=== PATIENT | female | born 1980 | race Caucasian/White ===

== ENCOUNTER 2016-07-11 11:26 | Emergency (ER) | payer MEDICAID ==
[~2016-07-11] VITALS: Ht 160 cm; Wt 124.5 kg
[~2016-07-11 11:26] MED LIST: AMOX-291 PO; CEPH-375 PO; HYDR12.53 PO; HYDR473S19; NO MEDICATIONS; OXYC-302 PO; none per pt
[2016-07-11] MEDS ORDERED: SODIUM CHLORIDE 0.9% 1,000 ML IV ONE (11:45)
[2016-07-11] MEDS ORDERED: SODIUM CHLORIDE 0.9% 1,000ML IVBOLUS ONE (12:00)
[2016-07-11] MEDS ORDERED: SODIUM CHLORIDE FLUSH 10ML SYR IVF ONE (12:00)
[2016-07-11 12:59] LABS: ASPARTATE AMINO TRANSFERASE 28 U/L (15-37); BLOOD UREA NITROGEN 11 mg/dL (7-18)
[2016-07-11] MEDS ORDERED: POTASSIUM CHLORIDE 20 MEQ in SODIUM CHLORIDE 0.9% 1,000 ML IV ONE (13:10)
[2016-07-11] MEDS ORDERED: SODIUM CHLORIDE FLUSH 10ML SYR IVF PRN (13:30)
[2016-07-11 14:16] VITALS: BP 124/75
== END 2016-07-11 14:18 | disposition home or self-care (01) ==
LOC: ED 13:09
DX: K76.0 Fatty (change of) liver, not elsewhere classified (principal)
CPT/HCPCS: 36415; 74176; 80053; 81003; 84703; 85025; 96360; 96361; 99285; J7030

== ENCOUNTER 2016-09-11 12:50 | Emergency (ER) | payer MEDICAID ==
[~2016-09-11] VITALS: Ht 160 cm; Wt 122.5 kg
[2016-09-11] MEDS ORDERED: MORPHINE SULFATE 4 MG/ML, 1ML IVPush PRN (14:30)
[2016-09-11] MEDS ORDERED: SODIUM CHLORIDE FLUSH 10ML SYR IVF ONE (14:30)
[2016-09-11] MEDS ORDERED: SODIUM CHLORIDE 0.9% 1,000ML IV ONE (14:30)
[2016-09-11] MEDS ORDERED: ONDANSETRON 2MG/ML, 2ML IVPush ONE (14:30)
[2016-09-11] MEDS ORDERED: ONDANSETRON 2MG/ML, 2ML ONE (14:49)
[2016-09-11] MEDS ORDERED: MORPHINE SULFATE 4 MG/ML, 1ML ONE (14:49)
[2016-09-11 15:02] LABS: ASPARTATE AMINO TRANSFERASE 39 U/L (15-37); BLOOD UREA NITROGEN 5 mg/dL (7-18)
[2016-09-11 15:56] VITALS: BP 123/75
== END 2016-09-11 15:58 | disposition home or self-care (01) ==
LOC: ED 13:50
DX: R10.9 Unspecified abdominal pain (principal); K21.9 Gastro-esophageal reflux disease without esophagitis; M54.12 Radiculopathy, cervical region; Z87.442 Personal history of urinary calculi
CPT/HCPCS: 36415; 76770; 80053; 81001; 83605; 84702; 85025; 87040; 96361; 96374; 96375; 99285; J2405; J7030

== ENCOUNTER 2016-11-24 08:48 | Emergency (ER) | payer MEDICAID ==
[~2016-11-24] VITALS: Ht 160 cm; Wt 120.9 kg
[2016-11-24 08:51] VITALS: BP 132/91
== END 2016-11-24 10:55 | disposition home or self-care (01) ==
LOC: ED 10:50
DX: B34.9 Viral infection, unspecified (principal); K21.9 Gastro-esophageal reflux disease without esophagitis
CPT/HCPCS: 71020; 99284

== ENCOUNTER 2017-03-21 08:57 | Emergency (ER) | payer MEDICAID ==
[~2017-03-21] VITALS: Ht 160 cm; Wt 122.2 kg
[2017-03-21] MEDS ORDERED: DULO30CA2 PO (09:35)
[2017-03-21] MEDS ORDERED: CELE100C PO (09:35)
[2017-03-21 09:39] LABS: BASOPHILS # (AUTO) 0.04 x10^3/uL (0-0.1); BASOPHILS % (AUTO) 1 % (0-1); EOSINOPHILS # (AUTO) 0.17 x10^3/uL (0-0.4); EOSINOPHILS % (AUTO) 3 % (1-7); LYMPHOCYTES # (AUTO) 2.13 x10^3/uL (1-3.4); LYMPHOCYTES % (AUTO) 37 % (22-44); MD NO; MEAN CORPUSCULAR HEMOGLOBIN 28.7 pg (27.0-34.8); MEAN CORPUSCULAR VOLUME 84.4 fL (80-100); MEAN PLATELET VOLUME 9.2 fL (7.4-10.4); MONOCYTES # (AUTO) 0.34 x10^3/uL (0.2-0.8); MONOCYTES % (AUTO) 6 % (2-9); NEUTROPHILS % (AUTO) 54 % (42-75); PLATELET COUNT 202 x10^3/uL (130-400); RED BLOOD COUNT 5.43 x10^6/uL (3.82-5.3); RED CELL DISTRIBUTION WIDTH 12.7 % (9.6-15.2)
[2017-03-21 09:51] LABS: ALBUMIN 3.4 g/dL (3.4-5.0); ANION GAP 6 mmol/L (5-15); CHLORIDE 110 mmol/L (98-107); CREATININE 0.77 mg/dL (0.55-1.02)
[2017-03-21 09:55] LABS: ALKALINE PHOSPHATASE 88 U/L (45-117); BILIRUBIN,TOTAL 0.5 mg/dL (0.2-1.0); TOTAL PROTEIN 7.4 g/dL (6.4-8.2)
[2017-03-21 09:56] LABS: ALANINE AMINOTRANSFERASE 46 U/L (12-78)
[2017-03-21 09:57] LABS: CULTURE INDICATED? YES; MICROSCOPIC INDICATED
[2017-03-21 11:38] VITALS: BP 126/83
[2017-03-21 13:08] LABS: MICROSCOPIC NOT IND
[2017-03-21 13:12] LABS: CULTURE INDICATED? NO
== END 2017-03-21 13:36 | disposition home or self-care (01) ==
LOC: ED 09:51
DX: R10.9 Unspecified abdominal pain (principal); K21.9 Gastro-esophageal reflux disease without esophagitis
CPT/HCPCS: 36415; 74176; 80053; 81001; 81003; 83690; 84703; 85025; 87086; 99285

== ENCOUNTER 2018-01-01 13:52 | Emergency (ER) | payer MEDICAID ==
[~2018-01-01] VITALS: Ht 160 cm; Wt 120.7 kg
[~2018-01-01 13:52] MED LIST changes: +CELE100C PO; +DULO30CA2 PO; +GABA600T2 PO; +METF500T17 PO
[2018-01-01 14:50] LABS: BASOPHILS # (AUTO) 0.07 x10^3/uL (0-0.1); BASOPHILS % (AUTO) 1 % (0-1); EOSINOPHILS # (AUTO) 0.05 x10^3/uL (0-0.4); EOSINOPHILS % (AUTO) 1 % (1-7); LYMPHOCYTES % (AUTO) 33 % (22-44); MD NO; MEAN CORPUSCULAR HGB CONC 33.9 g/dL (32.4-35.8); MEAN CORPUSCULAR VOLUME 85.5 fL (80-100); MEAN PLATELET VOLUME 10.1 fL (7.4-10.4); MONOCYTES # (AUTO) 0.52 x10^3/uL (0.2-0.8); MONOCYTES % (AUTO) 8 % (2-9); NEUTROPHILS # (AUTO) 3.76 x10^3/uL (1.8-6.8); NEUTROPHILS % (AUTO) 57 % (42-75); PLATELET COUNT 226 x10^3/uL (130-400); RED BLOOD COUNT 5.22 x10^6/uL (3.82-5.3); RED CELL DISTRIBUTION WIDTH 12.8 % (9.6-15.2)
[2018-01-01 15:01] LABS: ALBUMIN 3.3 g/dL (3.4-5.0); ANION GAP 8 mmol/L (5-15); CHLORIDE 107 mmol/L (98-107)
[2018-01-01 15:06] LABS: ALANINE AMINOTRANSFERASE 51 U/L (12-78); ALKALINE PHOSPHATASE 85 U/L (45-117); BILIRUBIN,TOTAL 0.3 mg/dL (0.2-1.0); CREATININE 0.81 mg/dL (0.55-1.02); TOTAL PROTEIN 7.1 g/dL (6.4-8.2)
[2018-01-01 15:08] LABS: MICROSCOPIC INDICATED
[2018-01-01 15:28] LABS: CULTURE INDICATED? NO
[2018-01-01 16:54] VITALS: BP 125/92
[2018-01-01] MEDS ORDERED: MAALOX/HYOSCYAMINE/LIDOCAINE 45 ML BTL PO ONE (18:00)
== END 2018-01-01 17:52 | disposition home or self-care (01) ==
LOC: ED 16:35
DX: K29.00 Acute gastritis without bleeding (principal); M54.5 Low back pain
CPT/HCPCS: 36415; 74176; 80053; 81001; 83690; 84703; 85025; 99285

== ENCOUNTER 2019-08-28 11:38 | Emergency (ER) | payer MEDICAID ==
[~2019-08-28] VITALS: Ht 160 cm; Wt 128.5 kg
[~2019-08-28 11:38] MED LIST changes: -GABA600T2 PO; +GABA600T7 PO; +HYDR12.517 PO; -HYDR12.53 PO
--- NOTE | 2019-08-28 12:08 | NUR ---
FIRST CONTACT WITH PT. PT HAS PAIN RIGHT FLANK, PAINFUL URINATION FOR 1 WEEK. PT'S AOX4. RESPS EVEN AND UNLABORED. BP/SPO2 MONITORS IN PLACE. CALL LIGHT WITHIN REACH. PT URINATED IN URINE CUP ALREADY.
--- NOTE | 2019-08-28 12:14 | NUR ---
UA SENT AT THIS TIME.
[2019-08-28] MEDS ORDERED: KETOROLAC 30 MG/1 ML ONE (12:17)
--- NOTE | 2019-08-28 12:21 | NUR ---
PT MEDICATED PER EMAR. PT TOLERATED WELL.
[2019-08-28] MEDS ORDERED: KETOROLAC 30 MG/1 ML IM ONE (12:30)
[2019-08-28 12:57] LABS: BASOPHILS # (AUTO) 0.03 x10^3/uL (0-0.1); BASOPHILS % (AUTO) 1 % (0-1); EOSINOPHILS # (AUTO) 0.07 x10^3/uL (0-0.4); EOSINOPHILS % (AUTO) 2 % (1-7); LYMPHOCYTES # (AUTO) 1.78 x10^3/uL (1-3.4); LYMPHOCYTES % (AUTO) 39 % (22-44); MD NO; MEAN CORPUSCULAR HEMOGLOBIN 28.5 pg (27.0-34.8); MEAN CORPUSCULAR HGB CONC 33.1 g/dL (32.4-35.8); MEAN CORPUSCULAR VOLUME 86.2 fL (80-100); MEAN PLATELET VOLUME 9.5 fL (7.4-10.4); MONOCYTES # (AUTO) 0.38 x10^3/uL (0.2-0.8); MONOCYTES % (AUTO) 8 % (2-9); NEUTROPHILS # (AUTO) 2.31 x10^3/uL (1.8-6.8); NEUTROPHILS % (AUTO) 51 % (42-75); PLATELET COUNT 204 x10^3/uL (130-400); RED CELL DISTRIBUTION WIDTH 13.3 % (9.6-15.2)
[2019-08-28 13:07] LABS: ALBUMIN 3.4 g/dL (3.4-5.0); CALCIUM 8.1 mg/dL (8.5-10.1); CREATININE 0.81 mg/dL (0.55-1.02)
--- NOTE | 2019-08-28 13:10 | NUR ---
pt resting in [facility]. pt's aox4. resps even and unlabored. sheila.
[2019-08-28 13:21] LABS: ANION GAP 4 mmol/L (5-15); CHLORIDE 112 mmol/L (98-107)
--- NOTE | 2019-08-28 13:55 | NUR ---
THIS RN CALLED LAB IF LAB HAS UA FOR THIS PT. LAB WILL TAKE A LOOK AND WILL CALL BACK.
[2019-08-28 14:20] LABS: HCG UR SG 1.026 (1.003-1.030)
[2019-08-28 14:24] LABS: MICROSCOPIC INDICATED
[2019-08-28 15:03] VITALS: BP 120/79
--- NOTE | 2019-08-28 15:03 | NUR ---
pt resting in [facility]. pt's aox4. resps even and unlabored. sheila.
--- NOTE | 2019-08-28 15:24 | NUR ---
Patient given discharge instructions and they have confirmed that they understand the instructions. Patient ambulatory with steady gait.
== END 2019-08-28 15:25 | disposition home or self-care (01) ==
LOC: ED 13:37
DX: N30.00 Acute cystitis without hematuria (principal); M54.5 Low back pain; R10.9 Unspecified abdominal pain; R20.0 Anesthesia of skin; R11.0 Nausea; E11.9 Type 2 diabetes mellitus without complications
CPT/HCPCS: 36415; 80048; 81001; 81025; 82040; 84703; 85025; 87086; 96372; 99285; J1885

== ENCOUNTER 2019-09-13 21:54 | Emergency (ER) | payer MEDICAID ==
[~2019-09-13] VITALS: Ht 160 cm; Wt 131.0 kg
[2019-09-13] MEDS ORDERED: LIDOCAINE-MPF 1%, 2ML ONE (23:21)
[2019-09-13] MEDS ORDERED: LIDOCAINE 1%, 10ML INFIL ONE (23:30)
[2019-09-14] MEDS ORDERED: NEOSPORIN OINT. PKT 1 PACKET ONE (00:03)
[2019-09-14 00:10] VITALS: BP 132/77
== END 2019-09-14 00:24 | disposition home or self-care (01) ==
LOC: ED 23:20
DX: S91.202A Unspecified open wound of left great toe with damage to nail, initial encounter (principal); S90.112A Contusion of left great toe without damage to nail, initial encounter; W22.8XXA Striking against or struck by other objects, initial encounter; Y93.89 Activity, other specified; Y92.009 Unspecified place in unspecified non-institutional (private) residence as the place of occurrence of the external cause; Y99.8 Other external cause status
CPT/HCPCS: 11730; 99284

== ENCOUNTER 2020-02-08 22:31 | Emergency (ER) | payer MEDICAID ==
[~2020-02-08] VITALS: Ht 160 cm; Wt 126.8 kg
--- NOTE | 2020-02-08 22:37 | NUR ---
SSAS DEVELOPER: PT PROVIDED WITH URINE CUP AND ISNTRUCTIONS FOR COLLECTION.
[2020-02-08 23:15] LABS: MICROSCOPIC AUTO
[2020-02-09 00:29] LABS: BASOPHILS % (AUTO) 1 % (0-1); EOSINOPHILS % (AUTO) 1 % (1-7); LYMPHOCYTES % (AUTO) 40 % (22-44); MEAN CORPUSCULAR HEMOGLOBIN 28.7 pg (27.0-34.8); MEAN CORPUSCULAR HGB CONC 34.2 g/dL (32.4-35.8); MEAN PLATELET VOLUME 9.7 fL (7.4-10.4); MONOCYTES % (AUTO) 10 % (2-9); NEUTROPHILS % (AUTO) 49 % (42-75); PLATELET COUNT 213 x10^3/uL (130-400); RED BLOOD COUNT 5.16 x10^6/uL (3.82-5.3); RED CELL DISTRIBUTION WIDTH 12.8 % (9.6-15.2)
[2020-02-09 00:33] LABS: MD NO
[2020-02-09 00:37] LABS: ALBUMIN 3.8 g/dL (3.4-5.0); ANION GAP 4 mmol/L (5-15); CALCIUM 8.8 mg/dL (8.5-10.1); CHLORIDE 104 mmol/L (98-107); CREATININE 0.74 mg/dL (0.55-1.02)
[2020-02-09] MEDS ORDERED: PHENAZOPYRIDINE 200 MG TABLET PO ONE (01:00)
[2020-02-09] MEDS ORDERED: KETOROLAC 30 MG/1 ML IM ONE (01:00)
--- NOTE | 2020-02-09 01:19 | NUR ---
RN RECRUITMENT: PT. TO ROOM FROM LOBBY.
[2020-02-09] MEDS ORDERED: NITROFURANTOIN (MACROBID) 100 MG CAPSULE PO ONE (01:30)
[2020-02-09 01:46] VITALS: BP 120/62
[2020-02-09] MEDS ORDERED: PHENAZOPYRIDINE 200 MG TABLET ONE (01:50)
[2020-02-09] MEDS ORDERED: KETOROLAC 30 MG/1 ML ONE (01:50)
[2020-02-09 03:25] LABS: HCG UR SG 1.009 (1.003-1.030)
== END 2020-02-09 02:32 | disposition home or self-care (01) ==
LOC: ED 02-09 02:00
DX: N30.00 Acute cystitis without hematuria (principal); R10.9 Unspecified abdominal pain; M54.5 Low back pain; E11.9 Type 2 diabetes mellitus without complications; K21.9 Gastro-esophageal reflux disease without esophagitis
CPT/HCPCS: 36415; 80048; 81001; 81025; 82040; 85025; 87086; 96372; 99283; J1885

== ENCOUNTER 2020-03-16 20:28 | Emergency (ER) | payer MEDICAID ==
[~2020-03-16] VITALS: Ht 160 cm; Wt 112.0 kg
--- NOTE | 2020-03-16 21:03 | NUR ---
CC OF 10/06 ABD PAIN X 4 DAYS AND NAUSEA. PT STATES SHE HAD GASTRIC SLEEVE ON Jan AND HAS HAD PAIN AND NAUSEA SINCE. WAS PRESCRIBED MEDICATION FOR PAIN AND NAUSEA AND STATES NEITHER HAS HELPED AND CANNOT REMEMBER NAMES. PT ALSO STATES SHE HAD FOLLOW UP APPOITMENT TODAY AND WAS TOLD THEY WERE "PLACING ORDERS" BUT STATES "THEY TAKE FOREVER TO PLACE ORDERS". PT ALSO ADMITS TO NOT HAVING BM IN "A WEEK OR LONGER, LAST ONE WAS HARD AND BLACK". PT HAS 5 STABS WOUNDS ON ABD FROM SURGERY THAT ARE HEALING WELL.
[2020-03-16] MEDS ORDERED: MAALOX/HYOSCYAMINE/LIDOCAINE 45 ML BTL ONE (21:26)
[2020-03-16] MEDS ORDERED: MAALOX/HYOSCYAMINE/LIDOCAINE 45 ML BTL PO ONE (21:30)
[2020-03-16] MEDS ORDERED: SODIUM CHLORIDE FLUSH 10ML SYR IVF ONE (21:30)
[2020-03-16 21:37] LABS: BASOPHILS % (AUTO) 1 % (0-1); EOSINOPHILS % (AUTO) 3 % (1-7); LYMPHOCYTES % (AUTO) 35 % (22-44); MD NO; MEAN CORPUSCULAR HEMOGLOBIN 28.2 pg (27.0-34.8); MEAN CORPUSCULAR HGB CONC 33.9 g/dL (32.4-35.8); MEAN PLATELET VOLUME 11.5 fL (7.4-10.4); MONOCYTES % (AUTO) 12 % (2-9); NEUTROPHILS % (AUTO) 49 % (42-75); PLATELET COUNT 151 x10^3/uL (130-400); RED BLOOD COUNT 5.23 x10^6/uL (3.82-5.3); RED CELL DISTRIBUTION WIDTH 13.8 % (9.6-15.2)
[2020-03-16 21:45] LABS: ALANINE AMINOTRANSFERASE 57 U/L (12-78); ALBUMIN 3.7 g/dL (3.4-5.0); ANION GAP 12 mmol/L (5-15); CALCIUM 8.8 mg/dL (8.5-10.1); CHLORIDE 104 mmol/L (98-107); CREATININE 0.94 mg/dL (0.55-1.02)
[2020-03-16 21:50] LABS: ALKALINE PHOSPHATASE 86 U/L (45-117); BILIRUBIN,TOTAL 0.7 mg/dL (0.2-1.0)
[2020-03-16] MEDS ORDERED: OMNIPAQUE 350 MG/ML, 100ML BOTTLE ONE (22:08)
[2020-03-16 23:16] VITALS: BP 123/81
== END 2020-03-16 23:18 | disposition home or self-care (01) ==
LOC: ED 21:02
DX: R10.32 Left lower quadrant pain (principal); R10.13 Epigastric pain; R94.31 Abnormal electrocardiogram [ECG] [EKG]
CPT/HCPCS: 36415; 74177; 80053; 83690; 84703; 85025; 93005; 99285; Q9967

== ENCOUNTER 2020-03-19 09:47 | Observation (INO) | payer MEDICAID ==
[~2020-03-19] VITALS: Ht 160 cm; Wt 114.9 kg
[~2020-03-19 09:47] MED LIST changes: -OXYC-302 PO; +OXYC1TAB14 PO
[2020-03-19 10:50] LABS: BASOPHILS % (AUTO) 1 % (0-1); EOSINOPHILS % (AUTO) 2 % (1-7); LYMPHOCYTES % (AUTO) 32 % (22-44); MEAN CORPUSCULAR HEMOGLOBIN 28.3 pg (27.0-34.8); MEAN CORPUSCULAR HGB CONC 34.3 g/dL (32.4-35.8); MEAN PLATELET VOLUME 11.7 fL (7.4-10.4); MONOCYTES % (AUTO) 13 % (2-9); NEUTROPHILS % (AUTO) 52 % (42-75); PLATELET COUNT 131 x10^3/uL (130-400); RED BLOOD COUNT 5.25 x10^6/uL (3.82-5.3); RED CELL DISTRIBUTION WIDTH 13.5 % (9.6-15.2)
[2020-03-19 10:51] LABS: MD NO
[2020-03-19 10:57] LABS: ALANINE AMINOTRANSFERASE 53 U/L (12-78); ALBUMIN 3.6 g/dL (3.4-5.0); ANION GAP 10 mmol/L (5-15); CALCIUM 8.5 mg/dL (8.5-10.1); CHLORIDE 101 mmol/L (98-107)
[2020-03-19 10:59] LABS: ALKALINE PHOSPHATASE 81 U/L (45-117); BILIRUBIN,TOTAL 0.8 mg/dL (0.2-1.0); TOTAL PROTEIN 6.8 g/dL (6.4-8.2)
[2020-03-19] MEDS ORDERED: POTASSIUM CHLORIDE 20 MEQ TAB.ER.PRT ONE (11:55)
[2020-03-19] MEDS ORDERED: NS + 40MEQ KCL 0 ML IV ONE (11:55)
[2020-03-19] MEDS ORDERED: POTASSIUM CHLORIDE 20 MEQ TAB.ER.PRT PO ONE (12:00)
[2020-03-19] MEDS ORDERED: POTASSIUM CHLORIDE 40 MEQ in SODIUM CHLORIDE 0.9% 1,000 ML IV ONE (12:00)
[2020-03-19] MEDS ORDERED: ONDANSETRON 2MG/ML, 2ML ONE (12:02)
[2020-03-19] MEDS ORDERED: ONDANSETRON 2MG/ML, 2ML IVPush ONE (12:30)
[2020-03-19] MEDS ORDERED: SODIUM CHLORIDE FLUSH 10ML SYR IVF PRN (12:30)
[2020-03-19] MEDS ORDERED: MULT-160 PO (12:38)
[2020-03-19] MEDS ORDERED: CALC400T40 PO (12:38)
[2020-03-19] MEDS ORDERED: VITA1TAB19 PO (12:38)
[2020-03-19] MEDS ORDERED: PANT20TA4 PO (12:38)
[2020-03-19] MEDS ORDERED: ONDANSETRON ODT 4 MG PO PRN (13:00)
[2020-03-19] MEDS ORDERED: LABETALOL 5MG/ML, 20ML IVPush PRN (13:00)
[2020-03-19] MEDS ORDERED: GLUCAGON 1 MG IM PRN (13:00)
[2020-03-19] MEDS ORDERED: IBUPROFEN 600 MG TABLET PO PRN (13:00)
[2020-03-19] MEDS ORDERED: DEXTROSE 50%, 50ML SYRINGE IVPush PRN (13:00)
[2020-03-19] MEDS ORDERED: ACETAMINOPHEN 325 MG TABLET PO PRN (13:00)
[2020-03-19] MEDS ORDERED: DEXTROSE 4 GM TAB.CHEW PO PRN (13:00)
[2020-03-19] MEDS ORDERED: POLYETHYLENE GLYCOL 17 GM PACKET PO PRN (13:00)
[2020-03-19] MEDS ORDERED: ONDANSETRON 2MG/ML, 2ML IVPush PRN (13:00)
[2020-03-19] MEDS ORDERED: ENALAPRILAT 1.25 MG/ML, 2ML IVPush PRN (13:00)
--- NOTE | 2020-03-19 13:22 | NUR ---
REPORT TO AUDELIA HAGEN
--- NOTE | 2020-03-19 13:30 | NUR ---
REPORT FROM LISE, ASSUME CARE OF PT AT THIS TIME.
--- NOTE | 2020-03-19 13:42 | NUR ---
PT RESTING COMFORTABLY, SPEAKING ON PHONE. PT OFFERED HOSPITAL BED, UNKNOWN DURATION OF HOLD IN ER. CALL TO HOUSEKEEPING TO REQUEST BED.
[2020-03-19] MEDS ORDERED: HEPARIN 5,000 UNITS/ML, 1ML ONE (14:17)
[2020-03-19] MEDS: HEPARIN 5,000 UNITS/ML, 1ML SQ SCH ×2 (14:20→20:14)
--- NOTE | 2020-03-19 14:47 | NUR ---
BREAK RN NOTE: PT RESTING ON GURNEY, A&O, RESPS EVEN AND UNLABORED. PT DENIES PAIN. NS WITH K INFUSING AT 250ML/HR. PT DENIES DISCOMFORT AT IV SITE. 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 CALL LIGHT IN REACH. PT DENIES ANY NEEDS.
--- NOTE | 2020-03-19 14:59 | NUR ---
PT MOVED TO HOSPITAL BED. NO COMPLAINTS, CALL LIGHT WITHIN REACH.
--- NOTE | 2020-03-19 15:49 | NUR ---
PT ASSISTED WITH REPOSITIONING, AMBULATORY TO BR. FREYA WE[facility] PLACED. CALL LIGHT WITHIN REACH.
[2020-03-19] MEDS: INSULIN REGULAR 100 UNITS/ML, 3ML VIAL SQ-INSULIN SCH ×2 (16:00→20:19)
--- NOTE | 2020-03-19 16:06 | NUR ---
REPORT TO BRANDON UGARTE READY FOR TRANSPORT.
[2020-03-19 16:40] VITALS: BP 117/77
[2020-03-19 17:16] LABS: ANION GAP 7 mmol/L (5-15); CALCIUM 7.9 mg/dL (8.5-10.1); CHLORIDE 106 mmol/L (98-107); CREATININE 0.63 mg/dL (0.55-1.02)
[2020-03-19] MEDS: POTASSIUM CHLORIDE 20 MEQ in LACTATED RINGERS 1,000 ML IV SCH (17:29)
[2020-03-19 19:21] VITALS: BP 102/70
[2020-03-19] MEDS ORDERED: POTASSIUM CHLORIDE 20 MEQ PACKET PO ONE (19:30)
[2020-03-19] MEDS: LACTULOSE 10 GM/15 ML UDC PO SCH (20:14)
[2020-03-19] MEDS: SODIUM CHLORIDE FLUSH 10ML SYR IVF SCH (20:18)
[2020-03-20 02:22] VITALS: BP 91/55
[2020-03-20] MEDS: POTASSIUM CHLORIDE 20 MEQ in LACTATED RINGERS 1,000 ML IV SCH (03:47)
[2020-03-20] MEDS: HEPARIN 5,000 UNITS/ML, 1ML SQ SCH ×3 (05:03→21:01)
[2020-03-20 05:05] LABS: BASOPHILS % (AUTO) 1 % (0-1); EOSINOPHILS % (AUTO) 3 % (1-7); LYMPHOCYTES % (AUTO) 47 % (22-44); MEAN CORPUSCULAR HEMOGLOBIN 28.3 pg (27.0-34.8); MEAN CORPUSCULAR HGB CONC 33.9 g/dL (32.4-35.8); MEAN PLATELET VOLUME 11.8 fL (7.4-10.4); MONOCYTES % (AUTO) 13 % (2-9); NEUTROPHILS % (AUTO) 36 % (42-75); PLATELET COUNT 106 x10^3/uL (130-400); RED BLOOD COUNT 4.77 x10^6/uL (3.82-5.3)
[2020-03-20 05:17] LABS: ANION GAP 9 mmol/L (5-15); CALCIUM 7.9 mg/dL (8.5-10.1); CHLORIDE 109 mmol/L (98-107); CREATININE 0.65 mg/dL (0.55-1.02)
[2020-03-20 06:11] LABS: MD SCAN
[2020-03-20] MEDS ORDERED: POTASSIUM CHLORIDE 20 MEQ PACKET PO SCH (08:00)
[2020-03-20 08:22] VITALS: BP 111/69
[2020-03-20] MEDS: INSULIN REGULAR 100 UNITS/ML, 3ML VIAL SQ-INSULIN SCH ×4 (08:36→21:00)
[2020-03-20] MEDS: CALCIUM CARBONATE 500 MG TABLET PO SCH (08:44)
[2020-03-20] MEDS: MULTIVITAMIN 1 TABLET PO SCH (08:44)
[2020-03-20] MEDS: PANTOPRAZOLE 40MG TABLET PO SCH (08:44)
[2020-03-20] MEDS: LACTULOSE 10 GM/15 ML UDC PO SCH ×2 (08:44→21:01)
[2020-03-20] MEDS: SENNA/DOCUSATE TABLET PO SCH (08:44)
[2020-03-20] MEDS: MULTIVITS,STRESS FORMULA 1 TABLET PO SCH (08:48)
[2020-03-20] MEDS: SODIUM CHLORIDE FLUSH 10ML SYR IVF SCH ×2 (08:49→21:01)
[2020-03-20] MEDS ORDERED: PANTOPRAZOLE 20MG TABLET PO SCH (09:00)
[2020-03-20] MEDS: POTASSIUM CHLORIDE 10% 40 MEQ/30 ML UDC PO SCH ×2 (12:20→17:23)
[2020-03-20] MEDS: POTASSIUM CHLORIDE 40 MEQ in LACTATED RINGERS 1,000 ML IV SCH ×2 (12:49→22:48)
[2020-03-20 13:24] VITALS: BP 103/73
[2020-03-20 15:46] LABS: CALCIUM 8.2 mg/dL (8.5-10.1); CHLORIDE 111 mmol/L (98-107); CREATININE 0.64 mg/dL (0.55-1.02)
[2020-03-20 15:55] LABS: ANION GAP 5 mmol/L (5-15)
[2020-03-20 19:04] VITALS: BP 113/70
[2020-03-20 21:23] VITALS: BP 119/78
[2020-03-20] MEDS ORDERED: CALCIUM CARBONATE 500 MG TAB.CHEW PO ONE (22:00)
[2020-03-20 22:22] LABS: ANION GAP 6 mmol/L (5-15); CHLORIDE 110 mmol/L (98-107); CREATININE 0.61 mg/dL (0.55-1.02)
[2020-03-20 22:26] LABS: TROPONIN I < 0.015 ng/mL (0.000-0.045)
[2020-03-21 01:07] VITALS: BP 108/63
[2020-03-21] MEDS: HEPARIN 5,000 UNITS/ML, 1ML SQ SCH ×2 (05:11→12:59)
[2020-03-21 06:53] VITALS: BP 125/79
[2020-03-21] MEDS: INSULIN REGULAR 100 UNITS/ML, 3ML VIAL SQ-INSULIN SCH ×2 (07:00→11:00)
[2020-03-21] MEDS: CALCIUM CARBONATE 500 MG TABLET PO SCH (08:52)
[2020-03-21] MEDS: MULTIVITAMIN 1 TABLET PO SCH (08:52)
[2020-03-21] MEDS: MULTIVITS,STRESS FORMULA 1 TABLET PO SCH (08:52)
[2020-03-21] MEDS: SENNA/DOCUSATE TABLET PO SCH (08:52)
[2020-03-21] MEDS: LACTULOSE 10 GM/15 ML UDC PO SCH (08:52)
[2020-03-21] MEDS: PANTOPRAZOLE 40MG TABLET PO SCH (08:53)
[2020-03-21] MEDS: SODIUM CHLORIDE FLUSH 10ML SYR IVF SCH (08:54)
[2020-03-21] MEDS: POTASSIUM CHLORIDE 40 MEQ in LACTATED RINGERS 1,000 ML IV SCH (11:07)
[2020-03-21 12:56] VITALS: BP 118/84
[2020-03-21] MEDS ORDERED: POTA20TA14 PO (13:28)
[2020-03-21] MEDS ORDERED: POTASSIUM CHLORIDE 20 MEQ TAB.ER.PRT PO SCH ×2 (21:00)
== END 2020-03-21 14:47 | disposition home or self-care (01) ==
LOC: ED 10:11 → EDIP 12:16 → INTOOBSV 12:16 → 4WST 16:34 → DCLOUNGE 03-21 14:38
PROVIDERS: ADMIT Family Medicine; ATTEND Family Medicine
DX: K91.2 Postsurgical malabsorption, not elsewhere classified (principal); K95.89 Other complications of other bariatric procedure; E87.6 Hypokalemia; E66.01 Morbid (severe) obesity due to excess calories; E11.9 Type 2 diabetes mellitus without complications; Z79.899 Other long term (current) drug therapy; Z79.84 Long term (current) use of oral hypoglycemic drugs
CPT/HCPCS: 36415; 80048; 80053; 82962; 84484; 85025; 93005; 96365; 96366; 96372; 96375; 97161; 97165; 99285; G0378; J1644; J2405; J3480; J7040; J7120; 96374

== ENCOUNTER 2020-05-26 16:56 | Emergency (ER) | payer MEDICAID ==
[~2020-05-26] VITALS: Ht 160 cm; Wt 107.0 kg
[~2020-05-26 16:56] MED LIST changes: +CALC400T40 PO; +MULT-160 PO; +PANT20TA4 PO; +POTA20TA14 PO; +VITA1TAB19 PO
[2020-05-26 18:13] LABS: MICROSCOPIC INDICATED
[2020-05-26 18:27] LABS: BASOPHILS % (AUTO) 1 % (0-1); EOSINOPHILS % (AUTO) 1 % (1-7); LYMPHOCYTES % (AUTO) 31 % (22-44); MEAN CORPUSCULAR HEMOGLOBIN 28.7 pg (27.0-34.8); MEAN CORPUSCULAR HGB CONC 33.2 g/dL (32.4-35.8); MEAN PLATELET VOLUME 10.5 fL (7.4-10.4); MONOCYTES % (AUTO) 7 % (2-9); NEUTROPHILS % (AUTO) 60 % (42-75); PLATELET COUNT 172 x10^3/uL (130-400); RED BLOOD COUNT 4.71 x10^6/uL (3.82-5.3); RED CELL DISTRIBUTION WIDTH 13.8 % (9.6-15.2)
[2020-05-26 18:29] LABS: MD NO
[2020-05-26 18:40] LABS: CHLORIDE 111 mmol/L (98-107)
[2020-05-26 18:52] LABS: ALANINE AMINOTRANSFERASE 22 U/L (12-78); ALBUMIN 3.3 g/dL (3.4-5.0); ALKALINE PHOSPHATASE 75 U/L (45-117); ANION GAP 5 mmol/L (5-15); BILIRUBIN,TOTAL 0.4 mg/dL (0.2-1.0); CALCIUM 8.3 mg/dL (8.5-10.1); CREATININE 0.63 mg/dL (0.55-1.02); TOTAL PROTEIN 6.4 g/dL (6.4-8.2)
[2020-05-26 18:57] VITALS: BP 117/74
== END 2020-05-26 19:31 | disposition home or self-care (01) ==
LOC: ED 19:15
DX: R53.1 Weakness (principal); R11.0 Nausea; E87.6 Hypokalemia; E11.9 Type 2 diabetes mellitus without complications
CPT/HCPCS: 36415; 80053; 81001; 83735; 84703; 85025; 87086; 99283

== ENCOUNTER → 2020-08-03 | Outpatient (CLI) | payer MEDICAID | END | disposition home or self-care (01) | LOC: RAD 16:48 | PROVIDERS: ATTEND Family Medicine | DX: R31.29 Other microscopic hematuria (principal) | CPT/HCPCS: 74176 ==

== ENCOUNTER 2020-09-18 11:50 | Emergency (ER) | payer MEDICAID ==
[~2020-09-18] VITALS: Ht 160 cm; Wt 103.5 kg
--- NOTE | 2020-09-18 12:17 | NUR ---
NIL 1.
--- NOTE | 2020-09-18 12:25 | NUR ---
PT WALKED TO ROOM. [employer] VAX SEVERAL MOTNHS AGO, COVID EXPOSURE A COUPLE WEEKS AGO, SICK X2 WEEKS W CONGESTION, GREEN PHLEGM, SORE THROAT, GENERAL MALAISE. CXR PENDING.
[2020-09-18 13:44] VITALS: BP 128/82
--- NOTE | 2020-09-18 13:44 | NUR ---
TASK RN NOTE: SWAB COLLECTED AND WALKED TO LAB. PT PREPARING FOR DC.
== END 2020-09-18 14:01 | disposition home or self-care (01) ==
LOC: ED 12:20
DX: J06.9 Acute upper respiratory infection, unspecified (principal); Z20.822 Contact with and (suspected) exposure to COVID-19; J98.8 Other specified respiratory disorders; J02.8 Acute pharyngitis due to other specified organisms; B97.89 Other viral agents as the cause of diseases classified elsewhere; R06.02 Shortness of breath; E11.9 Type 2 diabetes mellitus without complications
CPT/HCPCS: 71045; 87081; 87880; 99284; U0003